=== PATIENT | male | born 1960 | race American Indian/Alaskan Native ===

== ENCOUNTER 2024-01-02 14:05 | Outpatient (REF) | payer SELFPAY | END 2024-01-02 14:06 | disposition home or self-care (01) | LOC: CF 14:05 | DX: Z13.89 Encounter for screening for other disorder (principal) ==

== ENCOUNTER 2024-02-05 14:45 | Outpatient (AMB) | payer OTHER, SELFPAY ==
[2024-02-05 14:50] VITALS: BP 140/70; PULSE 63; O2SAT 96; BMI 34.3
--- NOTE | 2024-02-05 14:50 | A.OFFVIS_ITS ---
Vital Signs 3 02/05/24 14:50 Height 5 ft 5 in Weight 206 lb 2.115 oz BMI 34.3 BP 140/70 H Blood Pressure Location Lt brachial Position Sitting Pulse 63 Pulse Source Pulse Oximeter Pulse Oximetry (%) 96 Oxygen Delivery Method Room Air Intake Visit Reasons: asbestos exposure Business Intelligence Manager Required: No Chemical Treatment Plant Technician: Chemical Treatment Plant Technician offered & declined Allergies lipitor Adverse Reaction (Uncoded 02/05/24 14:55) feet and ankle swelling Medication List - Last Reconciled 02/05/24 by Cynthia Wright LPN aspirin 81 mg PO DAILY carvedilol 6.25 mg PO BID cholecalciferol (vitamin D3) 50 mcg PO DAILY ferrous sulfate 325 mg PO 2XW gabapentin 300 mg PO BID magnesium oxide 400 mg PO DAILY omeprazole magnesium (Acid Overhauler (omeprazole)) 20 mg PO DAILY pravastatin 10 mg PO DAILY thiamine HCl (vitamin B1) 200 mg PO DAILY HPI HPI asbestos exposure: Details: Abe is a pleasant 63 year old male, never smoker, with underlying HTN, h/o CVA, cirrhrosis and JULIUS on CPAP. He was referred by PCP for pulmonary evaluation after chest CT revealed pleural plaques. At baseline, he reports dyspnea with moderate exertion, intermittent wheezing and occasional cough which he attributes to seasonal allergies. He denies any prior history of asthma. He denies any pertinent family history. 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 He is on CPAP therapy for JULIUS [facility] Social History (Updated 02/05/24 @ 14:55 by Cynthia Wright LPN) Patient Tobacco Use Status: Never used Tobacco Review of Systems Const Denies chills, Denies excessive sweating, Denies fever(s), Denies headache(s) and Denies night sweats Eyes Denies dry eyes, Denies irritation and Denies itchy eyes ENT Reports Normal hearing present, Denies headache(s), Denies nasal congestion, Denies nasal discharge, Denies post nasal drip and Denies sore throat Card Denies chest pain, Denies chest pain at rest, Denies chest pain with activity, Denies claudication, Denies leg edema, Denies orthopnea and Denies paroxysmal nocturnal dyspnea Resp Denies chest congestion, Denies excessive phlegm production, Denies pain on inspiration, Denies pain with cough and Denies stridor Musc Denies myalgias Neuro Reports Normal hearing present and Denies headache(s) Endo Denies excessive sweating Manan/Lymph Denies lymphadenopathy Aller/Immun Denies itchy eyes and Denies seasonal rhinorrhea Physical Exam Vital Signs: Last Vital Signs Pulse 63 02/05/24 14:50 BP 140/70 H 02/05/24 14:50 Pulse Ox 96 02/05/24 14:50 Oxygen Delivery Method Room Air 02/05/24 14:50 BMI result Body Mass Index 34.3 Const General: cooperative, healthy appearing, comfortable, no acute distress, well developed and alert Nutritional Appearance: obese Orientation/consciousness: patient oriented x3 Limitations: no limitations HEENT Head: Yes normal to inspection, Yes normocephalic and Yes atraumatic Ears: hearing grossly normal bilaterally and external ears normal Eyes General: appearance normal, both eyes and all related structures Eyelids: Yes eyelids normal Sclerae: sclerae normal EOM: EOMs intact bilaterally Neck Neck: Yes normal visual inspection and Yes no lymphadenopathy Lymphatic: no lymphadenopathy noted Chest Chest palpation & inspection: normal inspection of the chest Resp Effort & Inspection: normal respiratory effort, able to speak in complete sentences, no audible wheezes, no cough, no stridor, not tachypneic, no tripod positioning and no use of accessory muscles Auscultation: clear to auscultation bilaterally Cardio Jugular venous distension: no JVD Rate: regular rate Rhythm: regular rhythm Skin Other: warm, dry General skin exam: no rashes or lesions noted Neuro General: patient oriented x3 Cranial nerves: Yes Normal hearing present Cognition (Neuro): normal cognition Gait exam (Neuro): Normal gait present Extrem General: Yes normal to inspection, Yes capillary refill normal, Yes no clubbing, cyanosis or edema and Yes no pedal edema Psych Appearance: grossly normal and well kempt Speech and movement: Normal speech and movement present and Clear speech present Affect: normal affect Attitude: cooperative Thought process: Normal thought process present Thought content: Normal thought content present Insight: Good insight present (Psych) Judgement: Good judgement present (Psych) Results Reviewed Results Reviewed: Assessment & Plan Assessment & Plan (1) Pleural plaque due to asbestos exposure: Code(s): J92.0 - Pleural plaque with presence of asbestos Category: Medical (2) Dyspnea on exertion: Code(s): R06.09 - Other forms of dyspnea Category: Medical Plan Will send for repeat chest CT in one year to assess stability of pleural plaques. No evidence of asbestosis at this time. Patient reports intermittent respiratory symptoms, overall controlled. Will send for PFT to assess for any obstructive/restrictive defect contributing to dyspnea. All questions were answered and patient is in agreement of plan. Will follow up to review PFT results or sooner if needed.
== END 2024-02-05 15:23 | disposition home or self-care (01) ==
PROVIDERS: PCP Internal Medicine; Referring Provider Internal Medicine; Visit Provider Nurse Practitioner Family
DX: J92.0 Pleural plaque with presence of asbestos (principal); R06.09 Other forms of dyspnea
CPT/HCPCS: 99204

== ENCOUNTER → 2024-02-05 14:45 | Outpatient (BNVA) | payer OTHER, SELFPAY | PROVIDERS: PCP Internal Medicine; Referring Provider Internal Medicine; Visit Provider Nurse Practitioner Family | DX: J92.0 Pleural plaque with presence of asbestos (principal); R06.09 Other forms of dyspnea | CPT/HCPCS: 99202 ==

== ENCOUNTER 2024-08-13 10:04 | Outpatient (AMB) | payer OTHER, SELFPAY ==
[2024-08-13 10:19] VITALS: BP 124/70; PULSE 53; O2SAT 99; BMI 33.3
--- NOTE | 2024-08-13 10:19 | A.OFFVIS_ITS ---
Vital Signs 08/13/24 10:19 Height 5 ft 5 in Weight 200 lb 6 oz BMI 33.3 BP 124/70 Blood Pressure Location Rt brachial Position Sitting Pulse 53 Pulse Source Pulse Oximeter Pulse Oximetry (%) 99 Oxygen Delivery Method Room Air Intake Visit Reasons: Asbestos Exposure Allergies bee venom protein (honey bee) Allergy (Severe, Verified 08/13/24 10:25) Swelling lipitor Adverse Reaction (Uncoded 08/13/24 10:24) feet and ankle swelling HPI HPI Asbestos Exposure: Details: Abe is a pleasant 64 year old male, never smoker, with underlying HTN, h/o CVA, cirrhrosis and JULIUS on CPAP. He was initally referred by PCP after chest CT revealed pleural plaques. He has a repeat chest CT scheduled for next January. At the last visit he was supposed to get a PFT however has been rescheduled, awaiting new appointment. He currently denies any respiratory symptoms. He denies any visits to urgent care or hospitalizations since the last visit. [facility] Social History Patient Tobacco Use Status: Never used Tobacco Review of Systems Const Denies chills, Denies excessive sweating, Denies fever(s), Denies headache(s) and Denies night sweats Eyes Denies dry eyes, Denies irritation and Denies itchy eyes ENT Reports Normal hearing present, Denies headache(s), Denies nasal congestion, Denies nasal discharge, Denies post nasal drip and Denies sore throat Card Denies chest pain, Denies chest pain at rest, Denies chest pain with activity, Denies claudication, Denies leg edema, Denies dyspnea, Denies dyspnea on exertion, Denies orthopnea and Denies paroxysmal nocturnal dyspnea Resp Denies chest congestion, Denies cough, Denies excessive phlegm production, Denies pain on inspiration, Denies pain with cough, Denies dyspnea, Denies dyspnea on exertion, Denies stridor and Denies wheezing Musc Denies myalgias Neuro Reports Normal hearing present and Denies headache(s) Endo Denies excessive sweating Manan/Lymph Denies lymphadenopathy Aller/Immun Denies itchy eyes, Denies seasonal rhinorrhea and Denies wheezing Physical Exam Vital Signs: Last Vital Signs Pulse 53 08/13/24 10:19 BP 124/70 08/13/24 10:19 Pulse Ox 99 08/13/24 10:19 Oxygen Delivery Method Room Air 08/13/24 10:19 BMI result Body Mass Index 33.3 Const General: cooperative, healthy appearing, comfortable, no acute distress, well developed and alert Orientation/consciousness: patient oriented x3 Limitations: no limitations HEENT Head: Yes normal to inspection, Yes normocephalic and Yes atraumatic Ears: hearing grossly normal bilaterally and external ears normal Eyes General: appearance normal, both eyes and all related structures Eyelids: Yes eyelids normal Sclerae: sclerae normal EOM: EOMs intact bilaterally Neck Neck: Yes normal visual inspection and Yes no lymphadenopathy Lymphatic: no lymphadenopathy noted Chest Chest palpation & inspection: normal inspection of the chest Resp Effort & Inspection: normal respiratory effort, able to speak in complete sentences, no audible wheezes, no cough, no stridor, not tachypneic, no tripod positioning and no use of accessory muscles Auscultation: clear to auscultation bilaterally Cardio Jugular venous distension: no JVD Rate: regular rate Rhythm: regular rhythm Skin Other: warm, dry General skin exam: no rashes or lesions noted Neuro General: patient oriented x3 Cranial nerves: Yes Normal hearing present Cognition (Neuro): normal cognition Gait exam (Neuro): Normal gait present Extrem General: Yes normal to inspection, Yes capillary refill normal, Yes no clubbing, cyanosis or edema and Yes no pedal edema Psych Appearance: grossly normal and well kempt Speech and movement: Normal speech and movement present and Clear speech present Affect: normal affect Attitude: cooperative Thought process: Normal thought process present Thought content: Normal thought content present Insight: Good insight present (Psych) Judgement: Good judgement present (Psych) Assessment & Plan Assessment & Plan (1) Pleural plaque due to asbestos exposure: Code(s): J92.0 - Pleural plaque with presence of asbestos Category: Medical (2) Dyspnea on exertion: Code(s): R06.09 - Other forms of dyspnea Category: Medical Plan At this time, Abe denies any respiratory symptoms. He is aware if this changes to call the office. He is awaiting his PFT to be scheduled. He is scheduled for repeat chest CT in one year to assess stability of pleural plaques, which is to be scheduled January 2025. All questions were answered and patient is in agreement of plan. Will follow up to review PFT results or sooner if needed. Coding Level of Care Code Est Pt Level 3 (48440) Diagnoses Pleural plaque due to asbestos exposure J92.0 Dyspnea on exertion R06.09
== END 2024-08-13 11:11 | disposition home or self-care (01) ==
PROVIDERS: PCP Internal Medicine; Visit Provider Nurse Practitioner Family
DX: J92.0 Pleural plaque with presence of asbestos (principal); R06.09 Other forms of dyspnea
CPT/HCPCS: 99213

== ENCOUNTER → 2024-08-13 10:04 | Outpatient (BNVA) | payer OTHER, SELFPAY | PROVIDERS: PCP Internal Medicine; Visit Provider Nurse Practitioner Family | DX: J92.0 Pleural plaque with presence of asbestos (principal); R06.09 Other forms of dyspnea | CPT/HCPCS: 99212 ==

== ENCOUNTER 2024-10-03 07:32 | Outpatient (REF) | payer OTHER, SELFPAY ==
--- NOTE | 2024-10-03 07:52 | PFT_ITS ---
Flows: FEV1: 108 % of predicted at 3.15 L FVC: 111 % of predicted at 4.17 L FEV1/FVC: 75 % Bronchodilator response: Absent Volumes: Total lung capacity: 90 % of predicted at 5.45 L Residual volume: 64 % of predicted at 1.28 L Slow vital capacity: 101 % of predicted at 4.17 L Expiratory reserve volume: 58 % of predicted at 0.58 L Diffusion capacity: Normal Impression: No obstructive or restrictive ventilatory defect. No bronchodilator response. Normal pulmonary function test. MTDD
[2024-10-03 11:35] VITALS: PULSE 63; O2SAT 96
== END 2024-10-03 07:33 | disposition home or self-care (01) ==
LOC: HO.RESP 07:32
PROVIDERS: PCP Internal Medicine; Visit Provider Nurse Practitioner Family
DX: R06.09 Other forms of dyspnea (principal)
CPT/HCPCS: 94010; 94640; 94727; 94729

== ENCOUNTER → 2024-10-03 07:52 | Outpatient (BNV) | payer OTHER, SELFPAY | PROVIDERS: PCP Internal Medicine; Visit Provider Internal Medicine Pulmonary Disease | DX: R06.09 Other forms of dyspnea (principal) | CPT/HCPCS: 94060; 94727; 94729 ==

== ENCOUNTER 2024-12-09 08:09 | Outpatient (REF) | payer OTHER, SELFPAY | END 2024-12-09 08:10 | disposition home or self-care (01) | LOC: HO.CT 08:09 | PROVIDERS: PCP Internal Medicine; Visit Provider Nurse Practitioner Family | DX: J92.0 Pleural plaque with presence of asbestos (principal) | CPT/HCPCS: 71250 ==

== ENCOUNTER → 2024-12-09 08:10 | Outpatient (BNV) | payer OTHER, SELFPAY | PROVIDERS: PCP Internal Medicine; Visit Provider Radiology Diagnostic Radiology | DX: J92.0 Pleural plaque with presence of asbestos (principal); K74.60 Unspecified cirrhosis of liver; R16.1 Splenomegaly, not elsewhere classified | CPT/HCPCS: 71250 ==

== ENCOUNTER 2025-02-11 09:38 | Outpatient (AMB) | payer OTHER, SELFPAY ==
[2025-02-11 09:42] VITALS: BP 114/62; PULSE 56; O2SAT 99; BMI 31.8
--- NOTE | 2025-02-11 09:42 | MHC.OFFVIS ---
Vital Signs 02/11/25 09:42 Height 5 ft 5 in Weight 191 lb BMI 31.8 BP 114/62 Blood Pressure Location Lt brachial Position Sitting Pulse 56 Pulse Source Pulse Oximeter Pulse Oximetry (%) 99 Oxygen Delivery Method Room Air Intake Visit Reasons: Asbestos Exposure Vending Route Driver Required: No Rotary Rock Drilling Machine Operator: Rotary Rock Drilling Machine Operator offered & declined Accompanied by: Self / Same As Patient Allergies bee venom protein (honey bee) Allergy (Severe, Verified 02/11/25 09:47) Swelling lipitor Adverse Reaction (Uncoded 02/11/25 09:47) feet and ankle swelling Medication List - Last Reconciled 02/11/25 by Cynthia Wright LPN aspirin 81 mg PO DAILY carvedilol 6.25 mg PO BID cholecalciferol (vitamin D3) 50 mcg PO DAILY ferrous sulfate 325 mg PO 2XW gabapentin 300 mg PO BID magnesium oxide 400 mg PO DAILY omeprazole magnesium (Acid Alternative Financing Specialist (omeprazole)) 20 mg PO DAILY pravastatin 10 mg PO DAILY thiamine HCl (vitamin B1) 200 mg PO DAILY HPI HPI Asbestos Exposure: Details: Abe is a pleasant 64 year old male, never smoker, with underlying asbestos exposure with pleural plaques, HTN, h/o CVA, cirrhrosis and JULIUS on CPAP. He had initial CT chest 12/23 which revealed bilateral calcified pleural plaques and was scheduled for a repeat chest CT in one year to assess stability. Today he presents to review results as well as results of PFT, as he previously reported dyspnea on exertion. He currently denies any respiratory symptoms. He reports daily 2 mile walks with no respiratory symptoms. He denies any visits to urgent care or hospitalizations related to respiratory distress since the last visit. [facility] Social History Patient Tobacco Use Status: Never used Tobacco Review of Systems Const Denies chills, Denies excessive sweating, Denies fever(s), Denies headache(s) and Denies night sweats Eyes Denies dry eyes, Denies irritation and Denies itchy eyes ENT Reports Normal hearing present, Denies headache(s), Denies nasal congestion, Denies nasal discharge, Denies post nasal drip and Denies sore throat Card Denies chest pain, Denies chest pain at rest, Denies chest pain with activity, Denies claudication, Denies leg edema, Denies dyspnea, Denies dyspnea on exertion, Denies orthopnea and Denies paroxysmal nocturnal dyspnea Resp Denies chest congestion, Denies cough, Denies excessive phlegm production, Denies pain on inspiration, Denies pain with cough, Denies dyspnea, Denies dyspnea on exertion, Denies stridor and Denies wheezing Musc Denies myalgias Neuro Reports Normal hearing present and Denies headache(s) Endo Denies excessive sweating Manan/Lymph Denies lymphadenopathy Aller/Immun Denies itchy eyes, Denies seasonal rhinorrhea and Denies wheezing Physical Exam Vital Signs: Last Vital Signs Pulse 56 02/11/25 09:42 BP 114/62 02/11/25 09:42 Pulse Ox 99 02/11/25 09:42 Oxygen Delivery Method Room Air 02/11/25 09:42 BMI result Body Mass Index 31.8 Const General: cooperative, healthy appearing, comfortable, no acute distress, well developed and alert Orientation/consciousness: patient oriented x3 Limitations: no limitations HEENT Head: Yes normal to inspection, Yes normocephalic and Yes atraumatic Ears: hearing grossly normal bilaterally and external ears normal Eyes General: appearance normal, both eyes and all related structures Eyelids: Yes eyelids normal Sclerae: sclerae normal EOM: EOMs intact bilaterally Neck Neck: Yes normal visual inspection and Yes no lymphadenopathy Lymphatic: no lymphadenopathy noted Chest Chest palpation & inspection: normal inspection of the chest Resp Effort & Inspection: normal respiratory effort, able to speak in complete sentences, no audible wheezes, no cough, no stridor, not tachypneic, no tripod positioning and no use of accessory muscles Auscultation: clear to auscultation bilaterally Cardio Jugular venous distension: no JVD Rate: regular rate Rhythm: regular rhythm Skin Other: warm, dry General skin exam: no rashes or lesions noted Neuro General: patient oriented x3 Cranial nerves: Yes Normal hearing present Cognition (Neuro): normal cognition Gait exam (Neuro): Normal gait present Extrem General: Yes normal to inspection, Yes capillary refill normal, Yes no clubbing, cyanosis or edema and Yes no pedal edema Psych Appearance: grossly normal and well kempt Speech and movement: Normal speech and movement present and Clear speech present Affect: normal affect Attitude: cooperative Thought process: Normal thought process present Thought content: Normal thought content present Insight: Good insight present (Psych) Judgement: Good judgement present (Psych) Results Reviewed Results Reviewed: [address] [address] [address] Scan Report Signed Patient: Abe Meza MR#: [id number] : 1960 Acct:[id number] Age/Sex: 64 / M ADM Date: 12/09/24 Loc: HO.CT Attending Dr: Deborah Quispe NP Ordering Physician: Deborah Quispe NP Date of Service: 12/09/24 Procedure(s): CT chest wo IV con Accession Number(s): [id number] cc: Brian Guadalupe MD; Deborah Quispe NP~ Report Number: [id number]: Total DLP = 213.00 mGy-cm EXAMINATION: CT CHEST WITHOUT IV CONTRAST INDICATION: J92.0 - Pleural plaque with presence of asbestos COMPARISON: Comparison is made with an outside examination from [facility] dated 12/01/2023. TECHNIQUE: Helical CT scan of the chest was performed without intravenous contrast. Coronal and sagittal reformatted images were generated and reviewed. This CT exam was performed with one or more of the following dose reduction techniques: automated exposure control, adjustment of the mA and/or kV according to patient size, use of iterative reconstruction technique. DLP: 213 mGy-cm CHEST: THYROID: The thyroid is unremarkable. LUNGS: The lungs are clear. MEDIASTINUM: There is no mediastinal lymphadenopathy. SHANE: Evaluation of the hilar regions is limited by lack of intravenous contrast material. CARDIOVASCULATURE: The heart is mildly enlarged. There is no pericardial effusion. The thoracic aorta is normal in caliber. DEGREE OF CORONARY CALCIFICATION: mild PLEURA: Again seen are bilateral calcified pleural plaques consistent with prior asbestos exposure. No significant pleural thickening is seen. There is no pleural effusion. No pneumothorax. MAIN AIRWAYS: The mainstem bronchi and proximal branches are patent. AXILLA: There is no axillary lymphadenopathy. BONES AND SOFT TISSUES: There is a small hiatal hernia. UPPER ABDOMEN: The liver again demonstrates a nodular contour consistent with cirrhosis. The spleen is enlarged. Multiple varices are seen in the left upper quadrant. CT/CT chest wo IV con IMPRESSION: 1. Calcified pleural plaques consistent with prior specifics exposure. 2. Cirrhosis of the liver with splenomegaly. Electronically signed by: Santos Morales MD 12/09/2024 09:23 AM EST RP Dictated By: Santos Morales MD Signed By: <Electronically signed by Santos Morales MD in OV> 12/09/24922 DD/ 4 TD/TT: 12/09/24821 Chemical Research Technician: Assessment & Plan Assessment & Plan (1) Pleural plaque due to asbestos exposure: Code(s): J92.0 - Pleural plaque with presence of asbestos Category: Medical (2) Dyspnea on exertion: Code(s): R06.09 - Other forms of dyspnea Category: Medical Plan Reviewed PFT which revealed no obstructive or restrictive ventilatory defect. No bronchodilator response. Normal pulmonary function test. He currently denies any respiratory symptoms and is aware to call if this changes. Reviewed chest CT from 11/2024 which revealed stable pleural plaques with no other pulmonary findings. There was note of cirrhosis of the liver which is known to patient and PCP. Will repeat in one year to assess stability of calcified plaques. All questions were answered and patient is in agreement of plan. Will follow up to review results or sooner if needed. Orders: Orders CT chest wo IV con 10 Months J92.0 - Pleural plaque with presence of asbestos Coding Level of Care Code Est Pt Level 4 (35260) Diagnoses Pleural plaque due to asbestos exposure J92.0 Dyspnea on exertion R06.09
--- OUTSIDE RECORDS SUMMARY | 2025-02-11 10:50 | XMS_ITS | Clinical Summary ---
Author Organization [facility] Address [address] [place] [address] Care Team Providers Care Lobster Catcher Name Role Phone Unavailable Primary Care Provider Unavailabl e Social History Tobacco Use Types Packs/Day Years Used Date Smoking Tobacco: Never Assessed Sex and Gender Information Value Date Recorded Sex Assigned at Not on file Gender Identity Not on file Sexual Orientation Not on file Plan of Treatment Health Maintenance Due Date Last Done Comments Hepatitis C Virus Screening 1960 HIV Screening 1973 DTaP/Tdap/Td Vaccines (1 - Tdap) 1979 Pneumococcal Vaccines 50+ (1 of 1 - PCV) 2010 Zoster (Shingles) Vaccine (1 of 2) 2010 COVID-19 Vaccine ( - 2023-2 5 season) 2024 RSV Vaccine 60 years and old er and Patients (1 - 1-dose 75+ series) 2035 Hepatitis B Vaccines Aged Out No long er eligible based on patient's age to complete this topic Pneumococcal Vaccine: Pediat malachi (0-5 Years) and At-Risk Patients (6 to 49 Years) Aged Out No longer eligible b ased on patient's age to complete this topic
--- OUTSIDE RECORDS SUMMARY | 2025-02-11 10:50 | XMS_ITS | Clinical Summary ---
Author Organization [facility] Address [address] [place] [address] Care Team Providers Care Executive Producer Promos Name Role Phone Unavailable Primary Care Provider Unavailabl e Social History Tobacco Use Types Packs/Day Years Used Date Smoking Tobacco: Never Assessed Sex and Gender Information Value Date Recorded Sex Assigned at Not on file Legal Sex Male 1:07 PM EST Gender Identity Not on file Sexual Orientation Not on file Plan of Treatment Health Maintenance Due Date Last Done Comments Hepatitis A Vaccines (1 of 2 - Risk 2-dose series) 1979 Pneumococcal Vaccine: 50+ Years (1 of 1 - PCV) 2010 Zoster Vaccines (1 of 2) 2010 Hepatitis B Vaccines (2 of 3 - Risk 3-dose series) 04/05/2019 03/08/2019 RSV Immunization Adult Patients (1 - Risk 60-74 years 1-dose series) 2020 DTaP,Tdap,and Td Vaccines (3 - Td or Tdap) 05/01/2023 05/01/2013, 11/16/2007 Cholesterol Screening (Lipid Panel) 05/21/2024 Colorectal Cancer Screening: Colonoscopy 05/21/2024 Depression Screening 05/21/2024 HIV Screening 05/21/2024 Hepatitis C Screening 05/21/2024 Social Influencers of Health Screening 05/21/2024 COVID-19 Vaccine ( season) 2024 Hypertension/CHF/CAD Annual BMP Blood Test 12/21/2024 Influenza Vaccine (Season Ended) 2025 07/08/2019, 07/09/2018, 07/13/2017, Additional history exists HIB Vaccines Aged Out No longer eligi ble based on patient's age to complete this topic HPV Vaccines Aged Out No longer eligi ble based on patient's age to complete this topic IPV Vaccines Aged Out No longer eligi ble based on patient's age to complete this topic MMR Vaccines Aged Out No longer eligi ble based on patient's age to complete this topic Meningococcal ACWY Vaccine Aged Out N o longer eligible based on patient's age to complete this topic Meningococcal B Vaccine Aged Out No l onger eligible based on patient's age to complete this topic Pneumococcal Vaccine: Pediatrics (0 to 5 Years) and At-Risk Patients (6 to 64 Years) Aged Out No longer eligible based on patient's age to complete this topic RSV Immunization Patients Under 20 months Aged Out No longer eligible based on patient's age to complete this topic Varicella Vaccines Aged Out No longer eligible based on patient's age to complete this topic Advance Directives Documents on File Type Date Recorded 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
== END 2025-02-11 09:58 | disposition home or self-care (01) ==
LOC: HO.HPSW 09:38
PROVIDERS: PCP Internal Medicine; Visit Provider Nurse Practitioner Family
DX: J92.0 Pleural plaque with presence of asbestos (principal); R06.09 Other forms of dyspnea
CPT/HCPCS: 99214

== ENCOUNTER → 2025-02-11 09:38 | Outpatient (BNVA) | payer OTHER, SELFPAY | PROVIDERS: PCP Internal Medicine; Visit Provider Nurse Practitioner Family | DX: J92.0 Pleural plaque with presence of asbestos (principal); R06.09 Other forms of dyspnea | CPT/HCPCS: 99212 ==